=== PATIENT | male | born 1995 | race American Indian/Alaskan Native ===

== ENCOUNTER 2022-02-18 07:12 | Emergency (ER) | payer SELFPAY ==
[2022-02-18 07:34] VITALS: BP 151/99
--- NOTE | 2022-02-18 07:43 | Emergency Department Report ---
ED Recheck HPI - General Chief Complaint: High BP Stated Complaint: HIGH BLOOD PRESSURE Time Seen by Provider: 02/18/22 07:37 Source: patient Mode of arrival: Ambulatory Limitations: No Limitations - History of Present Illness Initial Comments: 27 yo black, male with a pmh of htn presents to the Ed requesting refill of antihypertensive medications. He states that he recently moved here from [place] and has not had the opportunity to find a pcp. He states that he ran out of his medications about one month ago. He denies cp, sob, n/v, dizziness, and diaphoresis. Complaint: medication refill request - Related Data Previous Rx's Medication Instructions Recorded Last Taken Type amLODIPine 10 mg PO DAILY #30 tab 02/18/22 Unknown Rx lisinopriL [Lisinopril] 20 mg PO DAILY #30 tab 02/18/22 Unknown Rx Allergies Allergy/AdvReac Type Severity Reaction Status Date / Time No Known Allergies Allergy Verified 02/18/22 07:29 ED Review of Systems ROS: Stated complaint: HIGH BLOOD PRESSURE Other details as noted in HPI Comment: All other systems reviewed and negative Constitutional: denies: chills, fever, malaise, weakness Respiratory: denies: shortness of breath Cardiovascular: denies: chest pain, palpitations, dyspnea on exertion, orthopnea, edema, syncope, paroxysmal nocturnal dyspnea Gastrointestinal: denies: abdominal pain, nausea, vomiting Genitourinary: denies: urgency, dysuria, frequency, hematuria, discharge, testicular pain Musculoskeletal: denies: back pain Neurological: denies: headache, weakness ED Past Medical Hx - Medications Home Medications: Home Medications Medication Instructions Recorded Confirmed Last Taken Type amLODIPine 10 mg PO DAILY #30 tab 02/18/22 Unknown Rx lisinopriL [Lisinopril] 20 mg PO DAILY #30 tab 02/18/22 Unknown Rx ED Physical Exam - General Limitations: No Limitations General appearance: alert, in no apparent distress - Head Head exam: Present: atraumatic, normocephalic - Eye Eye exam: Present: normal appearance. Absent: conjunctival injection - Respiratory Respiratory exam: Present: normal lung sounds bilaterally. Absent: respiratory distress, wheezes, rales, rhonchi, stridor, chest wall tenderness - Cardiovascular Cardiovascular Exam: Present: regular rate, normal heart sounds - GI/Abdominal GI/Abdominal exam: Present: soft, normal bowel sounds. Absent: distended, tenderness, guarding, rebound, rigid - Extremities Exam Extremities exam: Present: normal inspection, normal capillary refill. Absent: tenderness, pedal edema, joint swelling, calf tenderness - Back Exam Back exam: Present: normal inspection. Absent: CVA tenderness (R), CVA tenderness (L) - Neurological Exam Neurological exam: Present: alert, oriented X3, normal gait - Psychiatric Psychiatric exam: Present: normal affect, normal mood - Skin Skin exam: Present: warm, dry, intact, normal color ED Course Vital Signs 02/18/22 07:30 Temperature 98 F Pulse Rate 85 Respiratory 16 Rate Blood Pressure 151/99 [Left] O2 Sat by Pulse 97 Oximetry ED Recheck MDM - Differential Diagnosis Prescription Refill(s) - Medical Decision Making 27 yo black, male with a pmh of htn presents to the Ed requesting refill of antihypertensive medications. He states that he recently moved here from [place] and has not had the opportunity to find a pcp. He states that he ran out of his medications about one month ago. He denies cp, sob, n/v, dizziness, and diaphoresis. No gross abnormalities noted on exam, and patient continues to deny any compliants at this time. Patient was given refill of Norvasc and Lisinopril and advised to follow up with pcp for further evaluation and management. He verbalized understanding of and agreement with plan of care. Critical care attestation.: If time is entered above; I have spent that time in minutes in the direct care of this critically ill patient, excluding procedure time. ED Disposition Clinical Impression: Medication refill Disposition: HOME / SELF CARE / HOMELESS Is pt being admited?: No Does the pt Need Aspirin: No Condition: Stable Instructions: Lisinopril tablets, Amlodipine tablets Additional Instructions: Take medications as prescribed. Follow-up with primary care provider for further evaluation and management. Return to the emergency department as needed Prescriptions: amLODIPine 10 mg PO DAILY #30 tab lisinopriL [Lisinopril] 20 mg PO DAILY #30 tab Referrals: MELITON AYALA MD [Staff Physician] - 3-5 Days Time of Disposition: 07:43
== END 2022-02-18 08:06 | disposition home or self-care (01) ==
LOC: ED 07:12
DX: I10 Essential (primary) hypertension (principal); Z76.0 Encounter for issue of repeat prescription
CPT/HCPCS: 99282